=== PATIENT | female | born 1980 | race Caucasian/White ===

== ENCOUNTER → 2017-09-08 | Outpatient (REF) | payer OTHER | LOC: M LAB REF 21:54 | DX: R50.9 Fever, unspecified (principal); R52 Pain, unspecified ==

== ENCOUNTER → 2019-01-12 | Outpatient (REF) | payer OTHER ==
[~2019-01-12] MED LIST: ANUS25SU TOP; IBUP800T OR; MILKSUS OR; MOM30SS FT; MOTR200T44 PO; PRENTAB8 PO; TYLE167L PO; TYLE500T53 OR; lanolin cream
== END ==
LOC: M LAB REF 16:33
PROVIDERS: ATTEND Physician Assistant
DX: J02.9 Acute pharyngitis, unspecified (principal)

== ENCOUNTER → 2020-03-28 | Outpatient (CLI) | payer OTHER ==
[2020-03-28 09:45] LABS: BASO % 0.2 % (0.0-1.0); EOS # 0.2 10^3/uL (0.0-0.5); EOS % 3.5 % (0.0-3.0); HEMATOCRIT 34.6 % (36.0-47.0); HEMOGLOBIN 10.3 g/dl (12.0-15.5); LYMPH # 1.7 10^3/uL (1.5-5.0); LYMPH % 40.1 % (24.0-44.0); MEAN CORPUSCULAR HEMOGLOBIN 22.1 pg (27.0-33.0); MEAN CORPUSCULAR HGB CONC 29.8 g/dl (32.0-36.5); MEAN CORPUSCULAR VOLUME 74.2 fl (80.0-96.0); MONO # 0.3 10^3/uL (0.0-0.8); MONO % 7.6 % (0.0-5.0); NEUTROPHILS # 2.1 10^3/uL (1.5-8.5); NEUTROPHILS % 48.1 % (36.0-66.0); PLATELET COUNT, AUTOMATED 294 10^3/uL (150-450); RED BLOOD COUNT 4.66 10^6/uL (4.00-5.40); WHITE BLOOD COUNT 4.3 10^3/uL (4.0-10.0)
[2020-03-28 10:17] LABS: ALBUMIN 3.9 GM/DL (3.2-5.2); ALT/SGPT 17 U/L (12-78); BILIRUBIN,TOTAL 0.3 MG/DL (0.2-1.0); BLOOD UREA NITROGEN 11 MG/DL (7-18); CALCIUM LEVEL 8.8 MG/DL (8.5-10.1); CARBON DIOXIDE LEVEL 27 MEQ/L (21-32); CHLORIDE LEVEL 107 MEQ/L (98-107); CK-MB VALUE MASS 1.1 NG/ML (<3.6); CPK CREATINE PHOSPHOKINASE 106 U/L (26-192); CREATININE FOR GFR 0.81 MG/DL (0.55-1.30); GLOMERULAR FILTRATION RATE > 60.0 (>60); GLUCOSE, FASTING 88 MG/DL (70-100); IRON (FE) 14 UG/DL (50-170); MB/CK RELATIVE INDEX 1.04 (< OR =4); PERCENT SATURATION 3.1 % (13.2-45.0); SODIUM LEVEL 139 MEQ/L (136-145); TOTAL IRON BINDING CAPACITY 446 UG/DL (250-450); TOTAL PROTEIN 7.2 GM/DL (6.4-8.2); TROPONIN I < 0.02 NG/ML (< 0.10)
[2020-03-28 10:20] LABS: VITAMIN B12 LEVEL 1486 PG/ML
[2020-03-28 10:21] LABS: FOLATE > 24.0 NG/ML
== END ==
LOC: M WUC 08:06
PROVIDERS: ATTEND Nurse Practitioner Family
DX: R42 Dizziness and giddiness (principal)

== ENCOUNTER → 2020-04-16 | Outpatient (REF) | payer OTHER ==
[2020-05-29 08:19] LABS: PERCENT SATURATION 78.2 % (13.2-45.0)
== END ==
LOC: M LAB REF 14:57
PROVIDERS: ATTEND Internal Medicine
DX: D64.9 Anemia, unspecified (principal)

== ENCOUNTER → 2020-05-11 | Outpatient (CLI) | payer OTHER ==
[2020-05-11 13:08] LABS: FREE T4 0.97 NG/DL (0.76-1.46); THYROID STIMULATING HORMONE 2.49 uIU/ML (0.358-3.740)
[2020-05-11 13:10] LABS: THYROID PEROXIDASE ANTIBODY 41.6 U/ML (<60.0)
== END ==
LOC: M WUC 08:43
PROVIDERS: ATTEND Nurse Practitioner Family
DX: L65.9 Nonscarring hair loss, unspecified (principal); R94.6 Abnormal results of thyroid function studies

== ENCOUNTER → 2020-05-21 | Outpatient (CLI) | payer OTHER ==
--- NOTE | 2020-05-21 10:33 | PFTRPT ---
Height: 67.00 Inches Weight: 155.00 Lbs BSA: 1.81 Diagnosis: M35.9 DATE OF STUDY: 05/21/2020 ORDERING PHYSICIAN: Len Wilkins M.D. TECHNIQUE: Pre- and post-bronchodilator study of excellent technical quality. FINDINGS: Forced vital capacity is normal. FEV1 is in proportion of obstructive index; therefore, normal. Expiratory limit within the flow-volume loop is normal. No significant bronchodilator response identified. Total lung capacity is normal. Residual volume is in proportion. Diffusing capacity is normal. No hemoglobin available for correction. Airway resistance and conductance are normal. IMPRESSION: Essentially normal study. MTDD
--- NOTE | 2020-05-22 14:16 | ECHO ---
DATE OF PROCEDURE: 05/21/2020 Age: Gender: Female Height: 5 feet 7 inches Weight: 155 pounds REFERRING PHYSICIAN: Dr. Len Guzman INDICATION: Systemic involvement of connective tissue disease. MEASUREMENTS: 2D Measurements: Left atrium 2.4 cm Aortic root 3.1 cm Intraventricular septum 0.74 cm Posterior wall 0.71 cm Left ventricle diastole 3.0 cm Proximal ascending aorta 2.7 cm Inferior vena cava 1.1 cm with more than 50% respiratory variation Doppler Measurements: No aortic stenosis No aortic regurgitation Aortic valve velocity 123 cm/s LVOT velocity 98.1 cm/s Trace mitral regurgitation Mitral E velocity 87.4 cm/s Mitral A velocity 53.6 cm/s Mitral deceleration time 218 msec Trace tricuspid regurgitation No pulmonic regurgitation Pulmonary acceleration time 190 msec MITRAL ANNULAR TISSUE DOPPLER E prime septal 10.9 cm/s, E prime lateral 15.9 cm/s DESCRIPTION: Rhythm was sinus. Image quality was good. This was a 2D, M-mode, color flow Doppler, and pulsed wave Doppler examination including mitral annular tissue Doppler. CONCLUSIONS: 1. Normal left ventricle internal dimensions and wall thickness. Normal regional LV wall motion and wall thickening. Normal LV systolic function. LVEF 60% to 65% by visual estimate. Normal LV diastolic function. 2. Pulmonary artery systolic pressure not elevated. 3. No pericardial effusion. 4. Right pleural effusion. 5. Otherwise normal appearing echocardiogram Doppler findings. MTDD
== END ==
LOC: M CARPUL 09:21
PROVIDERS: ATTEND Specialist
DX: M35.9 Systemic involvement of connective tissue, unspecified (principal); J90 Pleural effusion, not elsewhere classified

== ENCOUNTER → 2020-07-24 | Outpatient (REF) | payer OTHER ==
[2020-07-24 17:04] LABS: PERCENT SATURATION 13.8 % (13.2-45.0)
== END ==
LOC: M LAB REF 16:14
PROVIDERS: ATTEND Internal Medicine
DX: E83.119 Hemochromatosis, unspecified (principal)

== ENCOUNTER → 2020-11-08 | Outpatient (REF) | payer OTHER ==
[2020-11-08 14:53] LABS: PERCENT SATURATION 5.8 % (13.2-45.0)
== END ==
LOC: M LAB REF 12:17
PROVIDERS: ATTEND Internal Medicine
DX: D50.9 Iron deficiency anemia, unspecified (principal)

== ENCOUNTER → 2020-12-24 | Outpatient (CLI) | payer OTHER ==
--- NOTE | 2020-12-25 09:33 | REP ---
INDICATION: M25.532- LT WRIST PAIN. Soft tissue swelling. Ganglion cyst versus other etiology. COMPARISON: None. TECHNIQUE: Axial, coronal, and sagittal imaging planes utilized. T1 and T2 weighted scans are included with and without fat saturation in the usual fashion. FINDINGS: There is a multiloculated cystic lesion at the dorsum of the carpus at the level of the proximal pole of the navicula. This is deep to the extensor tendons and measures 1 cm in greatest craniocaudal span by 4 mm dorsal ventral high by 5 mm right to left. This is consistent with a ganglion cyst and shows a T2 hyperintense signal and T1 hypointense signal. No other ganglion cyst is seen. No mass is observed. Cortical and medullary bone signal intensity are normal. Triangular fibrocartilage appears intact. There is a small quantity of fluid in the distal radioulnar articulation. The carpal tunnel and its contents are unremarkable. The exam is otherwise unremarkable. Incidental note is made of 1 or 2 subcortical cysts in the lunate and capitate. IMPRESSION: Small ganglion cyst at the dorsum of the carpus as described above. <Electronically signed by Luis Augustin > 12/25/20 [id number]
== END ==
LOC: M RAD 16:08
PROVIDERS: ATTEND Specialist
DX: M25.532 Pain in left wrist (principal)

== ENCOUNTER → 2021-03-07 | Outpatient (CLI) | payer OTHER ==
[~2021-03-07] MED LIST changes: +ISOVUE-370 76% 100ML VIAL As Ordered ONE
--- NOTE | 2021-03-07 11:55 | REP ---
INDICATION: F/U OF PULMONARY NODULE COMPARISON: 05/10/2020 TECHNIQUE: Standard helical technique after the administration of 100 cc Isovue 370 intravenously. FINDINGS: The mediastinum and pulmonary nallely are stable. There is no mass or adenopathy. There are no pleural or pericardial effusions. The imaged osseous structures and imaged upper abdomen are unchanged. Evaluation of the lung ferguson again shows mild stable appearing biapical pleuroparenchymal scarring. There is a stable 4 mm size nodule in the right middle lobe. No new abnormal nodules, masses, or opacities have developed. IMPRESSION: Stable CT examination of the chest. According to the revised Fleischner society criteria yearly CT screening is warranted depending on the patient's history. <Electronically signed by Alli Chamorro > 03/07/21 [id number]
== END ==
LOC: M RAD 11:11
PROVIDERS: ATTEND Internal Medicine
DX: R91.1 Solitary pulmonary nodule (principal); J98.4 Other disorders of lung

== ENCOUNTER → 2021-05-29 | Outpatient (REF) | payer OTHER ==
[~2021-05-29] MED LIST changes: -ISOVUE-370 76% 100ML VIAL As Ordered ONE
== END ==
LOC: M LAB REF 16:27
PROVIDERS: ATTEND Physician Assistant
DX: R05 Cough (principal); R53.83 Other fatigue

== ENCOUNTER → 2021-07-05 | Outpatient (REF) | payer OTHER ==
[2021-07-05 18:11] LABS: FERRITIN 11 NG/ML (8-252); IRON (FE) 29 UG/DL (50-170); PERCENT SATURATION 7.5 % (13.2-45.0); TOTAL IRON BINDING CAPACITY 389 UG/DL (250-450)
[2021-07-08 08:32] LABS: HCG, SERUM QUALITATIVE NEGATIVE (NEGATIVE)
== END ==
LOC: M LAB REF 17:16
PROVIDERS: ATTEND Internal Medicine
DX: D50.9 Iron deficiency anemia, unspecified (principal); N91.2 Amenorrhea, unspecified

== ENCOUNTER → 2021-07-16 | Outpatient (CLI) | payer OTHER ==
--- NOTE | 2021-07-16 17:14 | REP ---
INDICATION: PELVIC PAIN. COMPARISON: No pertinent prior TECHNIQUE: Transvesical imaging only. The patient refused transvaginal imaging. FINDINGS: Uterus measures 9.5 x 5.4 x 6 x 6 cm. The parenchymal echo pattern is within normal limits. The endometrial echo complex measures 1.6 cm in thickness. It is somewhat heterogenous in appearance. No discrete masses are identified. The right ovary measures 2.7 x 2 x 2.5 cm and is within normal limits an RI 0.54 Left ovary measures 3.1 x 2.5 x 2.3 cm and is within normal limits with an RI 0.48. Urinary bladder measures 8 by shell by 7 cm. IMPRESSION: Thickened heterogenous endometrial echo complex. It is seen in limited fashion due to the lack of transvaginal imaging. Follow-up is suggested. <Electronically signed by Alli Chamorro > 07/16/21 [id number]
== END ==
LOC: M RAD 16:20
PROVIDERS: ATTEND Internal Medicine
DX: R10.2 Pelvic and perineal pain (principal); N92.0 Excessive and frequent menstruation with regular cycle

== ENCOUNTER → 2023-10-29 | Outpatient (REF) | payer OTHER ==
[2023-10-29 17:52] LABS: PERCENT SATURATION 3.8 % (13.2-45.0)
[2023-10-29 17:54] LABS: FERRITIN 3.2 NG/ML (7.3-270.7)
== END ==
LOC: M LAB REF 16:20
PROVIDERS: ATTEND Internal Medicine
DX: D50.9 Iron deficiency anemia, unspecified (principal); D64.9 Anemia, unspecified

== ENCOUNTER → 2023-12-17 | Outpatient (REF) | payer OTHER ==
[2023-12-17 18:09] LABS: PERCENT SATURATION 62.3 % (13.2-45.0)
[2023-12-17 18:12] LABS: FERRITIN 10.1 NG/ML (7.3-270.7)
== END ==
LOC: M LAB REF 17:31
PROVIDERS: ATTEND Internal Medicine
DX: D50.9 Iron deficiency anemia, unspecified (principal)

== ENCOUNTER → 2024-01-01 | Outpatient (CLI) | payer OTHER ==
[2024-01-01 12:28] LABS: BASO % 0.2 % (0.0-1.0); EOS # 0.2 10^3/uL (0.0-0.5); EOS % 3.9 % (0.0-3.0); HEMOGLOBIN 12.9 g/dl (12.0-15.5); LYMPH # 2.2 10^3/uL (1.5-5.0); LYMPH % 41.7 % (24.0-44.0); MEAN CORPUSCULAR HEMOGLOBIN 26.2 pg (27.0-33.0); MEAN CORPUSCULAR HGB CONC 31.5 g/dl (32.0-36.5); MEAN CORPUSCULAR VOLUME 83.2 fl (80.0-96.0); MONO # 0.3 10^3/uL (0.0-0.8); MONO % 5.2 % (2.0-8.0); NEUTROPHILS # 2.5 10^3/uL (1.5-8.5); NEUTROPHILS % 48.8 % (36.0-66.0); PLATELET COUNT, AUTOMATED 261 10^3/uL (150-450); RED BLOOD COUNT 4.93 10^6/uL (4.00-5.40); WHITE BLOOD COUNT 5.2 10^3/uL (4.0-10.0)
[2024-01-01 12:34] LABS: ERYTHROCYTE SEDIMENTATION RATE 7 mm/hr (0-20)
[2024-01-01 13:22] LABS: THYROXINE (T4) 7.5 UG/DL (4.5-10.9)
[2024-01-01 13:23] LABS: THYROID STIMULATING HORMONE 3.946 uIU/ML (0.55-4.78)
[2024-01-01 13:26] LABS: C REACTIVE PROTEIN QUANTITATIV < 0.40 MG/DL (<1.0); VITAMIN B12 LEVEL 647 PG/ML (211-911)
[2024-01-01 13:27] LABS: COMPLEMENT C3 99.8 MG/DL (90.0-170.0); FOLATE > 24.0 NG/ML (>5.4); RHEUMATOID FACTOR QUANT < 3.5 IU/ML (<14)
[2024-01-01 13:28] LABS: ALBUMIN 3.8 G/DL (3.2-5.2); ALKALINE PHOSPHATASE 58 U/L (46-116); ALT/SGPT 18 U/L (7.0-40); AST/SGOT 14 U/L (<34); BILIRUBIN,TOTAL 0.2 MG/DL (0.3-1.2); BLOOD UREA NITROGEN 9 MG/DL (9-23); CALCIUM LEVEL 8.6 MG/DL (8.5-10.1); CARBON DIOXIDE LEVEL 28 MMOL/L (20-31); CHLORIDE LEVEL 107 MMOL/L (98-107); CREATININE FOR GFR 0.73 MG/DL (0.55-1.30); GLOMERULAR FILTRATION RATE > 60.0 (>58); GLUCOSE, FASTING 76 MG/DL (60-100); POTASSIUM SERUM 4.4 MMOL/L (3.5-5.1); SODIUM LEVEL 141 MMOL/L (136-145); TOTAL PROTEIN 6.4 G/DL (5.7-8.2)
== END ==
LOC: M WUC 09:13
PROVIDERS: ATTEND Specialist
DX: D64.9 Anemia, unspecified (principal); L65.9 Nonscarring hair loss, unspecified; M35.1 Other overlap syndromes; R76.0 Raised antibody titer

== ENCOUNTER → 2024-06-28 | Outpatient (REF) | payer OTHER ==
[2024-06-28 19:41] LABS: PERCENT SATURATION 21.1 % (13.2-45.0)
[2024-06-28 19:50] LABS: FERRITIN 7.6 NG/ML (7.3-270.7)
== END ==
LOC: M LAB REF 17:15
PROVIDERS: ATTEND Internal Medicine
DX: D50.9 Iron deficiency anemia, unspecified (principal)

== ENCOUNTER → 2024-11-30 | Outpatient (CLI) | payer OTHER | LOC: M WUC 09:38 | PROVIDERS: ATTEND Internal Medicine | DX: M54.2 Cervicalgia (principal) ==

== ENCOUNTER → 2024-12-09 | Outpatient (CLI) | payer OTHER | LOC: M RAD 15:35 | PROVIDERS: ATTEND Internal Medicine | DX: R59.0 Localized enlarged lymph nodes (principal) ==

== ENCOUNTER → 2025-01-20 | Outpatient (CLI) | payer OTHER ==
[~2025-01-20] MED LIST changes: +ISOVUE-370 76% 100ML VIAL ONE
== END ==
LOC: M PLAIMG 08:23
PROVIDERS: ATTEND Internal Medicine
DX: R59.1 Generalized enlarged lymph nodes (principal)
CPT/HCPCS: 70491; Q9967

== ENCOUNTER 2025-04-04 16:22 | Emergency (ER) | payer OTHER ==
[~2025-04-04] VITALS: Ht 170.2 cm; Wt 68.0 kg
[~2025-04-04 16:22] MED LIST changes: -ISOVUE-370 76% 100ML VIAL ONE
[2025-04-04] MEDS ORDERED: SERT50TA29 (16:31)
[2025-04-04] MEDS ORDERED: MINO2.5T (16:31)
[2025-04-04] MEDS ORDERED: BUSP5TA (16:31)
[2025-04-04] MEDS ORDERED: AMOX875T2 (16:31)
[2025-04-04 18:22] VITALS: BP 108/58; TEMP 97.9; O2SAT 100
[2025-04-04] MEDS: BOOSTRIX VACCINE (TETANUS/DIPHTH/ACEL. PERTUSSIS) 0.5 ML SYR IM.IMMUN ONE (20:28)
[2025-04-04] MEDS: RABIES VACCINE HUMAN 2.5 INTERNATIONAL UNITS/ML VIAL (IMOVAX) IM ONE (20:32)
[2025-04-04] MEDS: RABIES IMMUNE GLOBULIN 1500 INTERNATIONAL UNIT/5 ML VIAL IM.IMMUN ONE (20:38)
== END 2025-04-04 20:51 | disposition home or self-care (01) ==
LOC: M ED 16:22
DX: S61.431A Puncture wound without foreign body of right hand, initial encounter (principal); W55.01XA Bitten by cat, initial encounter; Z20.3 Contact with and (suspected) exposure to rabies; Z29.14 Encounter for prophylactic rabies immune globulin; Z23 Encounter for immunization; Y92.009 Unspecified place in unspecified non-institutional (private) residence as the place of occurrence of the external cause; Y93.89 Activity, other specified; Y99.9 Unspecified external cause status; Z79.2 Long term (current) use of antibiotics; Z79.899 Other long term (current) drug therapy

== ENCOUNTER 2025-04-07 09:55 | Emergency (ER) | payer OTHER ==
[~2025-04-07] VITALS: Ht 170.2 cm; Wt 67.9 kg
[~2025-04-07 09:55] MED LIST changes: +AMOX875T2; +BUSP5TA; +MINO2.5T; +SERT50TA29
[2025-04-07] MEDS ORDERED: FERR324T21 (10:01)
[2025-04-07] MEDS: RABIES VACCINE HUMAN 2.5 INTERNATIONAL UNITS/ML VIAL (IMOVAX) IM ONE (10:43)
[2025-04-07 10:49] VITALS: BP 107/57; TEMP 98.4; O2SAT 100
== END 2025-04-07 10:52 | disposition home or self-care (01) ==
LOC: M ED 09:55
DX: Z20.3 Contact with and (suspected) exposure to rabies (principal); Z29.14 Encounter for prophylactic rabies immune globulin; Z23 Encounter for immunization; Z79.2 Long term (current) use of antibiotics; Z79.899 Other long term (current) drug therapy

== ENCOUNTER 2025-04-11 10:37 | Emergency (ER) | payer OTHER ==
[~2025-04-11] VITALS: Ht 170.2 cm; Wt 66.9 kg
[~2025-04-11 10:37] MED LIST changes: +FERR324T21
[2025-04-11 10:39] VITALS: BP 91/57; TEMP 98.9; O2SAT 98
[2025-04-11] MEDS: RABIES VACCINE HUMAN 2.5 INTERNATIONAL UNITS/ML VIAL (IMOVAX) IM ONE (11:07)
== END 2025-04-11 11:14 | disposition home or self-care (01) ==
LOC: M ED 10:37
DX: Z20.3 Contact with and (suspected) exposure to rabies (principal); Z29.14 Encounter for prophylactic rabies immune globulin; F41.9 Anxiety disorder, unspecified; K21.9 Gastro-esophageal reflux disease without esophagitis; Z79.2 Long term (current) use of antibiotics; Z79.899 Other long term (current) drug therapy

== ENCOUNTER 2025-04-19 10:39 | Emergency (ER) | payer OTHER ==
[~2025-04-19] VITALS: Ht 170.2 cm; Wt 66.8 kg
[2025-04-19] MEDS: RABIES VACCINE HUMAN 2.5 INTERNATIONAL UNITS/ML VIAL (IMOVAX) IM ONE (11:26)
[2025-04-19 11:31] VITALS: BP 97/54; TEMP 97.2; O2SAT 100
== END 2025-04-19 11:34 | disposition home or self-care (01) ==
LOC: M ED 10:39
DX: Z20.3 Contact with and (suspected) exposure to rabies (principal); Z29.14 Encounter for prophylactic rabies immune globulin; Z23 Encounter for immunization; F41.9 Anxiety disorder, unspecified

== ENCOUNTER → 2025-08-10 | Outpatient (CLI) | payer OTHER | LOC: M RAD 08:06 | PROVIDERS: ATTEND Otolaryngology | DX: R22.1 Localized swelling, mass and lump, neck (principal) ==